=== PATIENT | male | born 1950 | race Caucasian/White ===

== ENCOUNTER → 2023-05-09 09:38 | Outpatient (CLI) | payer MEDICARE, SELFPAY ==
--- NOTE | 2023-05-09 09:45 | DI.NM.S_ITS ---
PROCEDURE: NM JACKIE PERF SPECT REST & STR Rest and exercise myocardial perfusion SPECT with gated imaging and ejection fraction RADIOPHARMACEUTICAL: 10.6 mCi Tc-99m sestamibi IV at rest and 25.4 mCi Tc-99m sestamibi IV at peak exercise. A one day-protocol was performed. INDICATIONS: Abnormal findings on diagnostic imaging of heart TECHNIQUE: Radiopharmaceutical was injected at peak stress test, and also at rest. SPECT images were obtained. SPECT myocardial perfusion images were displayed in short axis, horizontal long axis, and vertical long axis views. Gated images were reviewed using [employer] software. COMPARISON: None. CARDIAC STRESS: A standard Jack treadmill exercise tolerance test was performed by the patient under the supervision of an attending staff. The patient exercised for 5 minutes and 23 seconds; functional aerobic impairment (ONEAL) is +13%. Hemodynamic data: There is normal heart rate response to exercise stress. Hypertension present during the study (BP resting BP 115/70mmHg, max BP 188/104mmHg). Patient achieved 112% of maximum predicted heart rate at peak exercise. Symptoms: Patient denied chest pain during exercise. EKG: No diagnostic EKG changes of ischemia; no ectopy. FINDINGS: Raw data: There is good myocardial labeling by radiotracer. No significant motion artifacts. [id number] ratio is 0.26 (normal is less than 0.38 for sestamibi tracer, and less than 0.50 for thallium tracer). Left ventricle function: Gated images demonstrate normal left ventricle wall thickening. No segmental wall motion abnormality. No transient ischemic dilation; TID is 1.0 (normal less than 1.3). The left ventricle resting end-diastolic volume is 137 mL. Left ventricle stress ejection fraction is 67%; normal values are above 45%. Myocardial perfusion: There is normal distribution of activity in the left and right ventricular myocardium. No fixed or reversible perfusion defects. IMPRESSION: Low risk, normal treadmill nuclear stress test. 1) No perfusion evidence of ischemia or infarction. 2) Normal left ventricular size, wall motion, and systolic function (post stress 67%). 3) No ST changes during exercise or recovery. 4) No angina during the study. 5) Mildly reduced exercise tolerance (6.4METs, ONEAL +13%). Target heart rate reached. 6) Hypertension present during the study (BP resting BP 115/70mmHg, max BP 188/104mmHg). 7) No prior nuclear stress test available for comparison. Dictated by: Veronica Epstein MD on 05/09/2023 at 16:51 Approved by: Veronica Epstein MD on 05/09/2023 at 17:03
== END ==
PROVIDERS: PCP Family Medicine; Referring Provider Family Medicine; Visit Provider Family Medicine
DX: R93.1 Abnormal findings on diagnostic imaging of heart and coronary circulation (principal)
CPT/HCPCS: 78452; 93017; A9502